=== PATIENT | male | born 1950 | race Caucasian/White ===

== ENCOUNTER 2016-05-02 14:08 | Emergency (ER) | payer OTHER ==
--- NOTE | 2016-05-02 16:06 | DIAGNOSTIC IMAGING REPORT ---
PROCEDURE: XR CHEST 1 VIEW INDICATION: CHEST PAIN TECHNIQUE: Portable AP view 03:00 p.m. COMPARISON: None. FINDINGS: Lungs are clear. Heart and mediastinum are normal. Thorax is normal. Wires and electrodes IMPRESSION: 1. Negative chest.
--- NOTE | 2016-05-02 16:27 | ED CLINICAL REPORT ---
Clinical Report - Physicians/Mid Levels [facility] [address] [place] [address] 05/02/2016 14:10 Patient: JESUS PARKS Time Seen: 14:24; initial patient contact. Arrived- By private vehicle. Historian- patient. HISTORY OF PRESENT ILLNESS Chief Complaint: CHEST PAIN. It is described as "pain" and it is described as located in the central chest area. No radiation. This started today and is still present. It was abrupt in onset and has been waxing/waning. Onset during light activity. At its maximum, severity described as moderate. When seen in the E.D., it was almost gone. Modifying factors. Not worsened by anything. Not relieved by anything. The patient has had nausea and has experienced diaphoresis. No vomiting or difficulty breathing. Similar symptoms previously: None. Recent medical care: Not recently seen/assessed. REVIEW OF SYSTEMS No fever, cough, pedal edema, calf pain or abdominal pain. He has had chills. All systems otherwise negative, except as recorded above. PAST HISTORY Hypercholesterolemia. Myocardial Infarction. Hypertension. SURGERIES: Cardiac Stent. Medications: MetFORMIN HCl Oral. Losartan Potassium Oral. Metoprolol Tartrate Oral. Aspirin Oral. Atorvastatin Calcium Oral. Allergies: No Known Drug Allergy. SOCIAL HISTORY Never smoker. No alcohol use or drug use. ADDITIONAL NOTES The nursing notes have been reviewed with agreement regarding the chief complaint, PMH and patient medications and allergies. PHYSICAL EXAM Vital Signs: 05/02/2016 14:27 BP: 139/96. HR: 60. RR: 14. O2 saturation: 98%. Temp: 98.2 F. Pain level now: 5/10. Have been reviewed. Hypertensive. Heart rate normal. Respiratory rate normal. Temperature normal. Oxygen saturation normal. Appearance: Alert. Oriented X3. No acute distress. Eyes: Eyes normal inspection. ENT: Pharynx normal. Neck: No JVD. CVS: Normal heart rate and rhythm. Heart sounds normal. Respiratory: No respiratory distress. Breath sounds normal. Chest nontender. Abdomen: Soft and nontender. Bowel sounds normal. No organomegaly. No mass. Skin: Normal skin color. Extremities: No calf tenderness. No lower extremity edema. Neuro: Oriented X 3. LABS, X-RAYS, AND EKG EKG: EKG time: (1424). No acute process. No acute ischemia. Bradycardia (ventricular rate 53). Sinus bradycardia. Normal P waves. Normal BASSAM. Normal QRS complex. Normal axis. Normal ST and T waves, QT and QTc. Prior EKG unavailable. The study has been interpreted contemporaneously by me. The study has been independently viewed by me. The EKG appears to be a good tracing. Artifact present. I agree with and confirm the computer reading of the EKG. Interpretation time: 1424. Chest X-ray: No acute disease. Normal lung markings present. Mediastinum normal. Great vessels normal. Soft tissues normal. No infiltrate. No fracture. No bony lesion present. Views: AP. Technique: good. The X-rays were independently viewed by me and interpreted contemporaneously by me. Prior films were not available for comparison. Interpretation time: 15:53. Laboratory Tests: CBC w Diff: (HUNTER: 05/02/2016 15:02) ( [facility] Final results Test Result Flag Units (Reference) WHITE BLOOD COUNT 11.5 K/uL (4.5-11.5) RED BLOOD COUNT 4.86 M/uL (4.50-5.90) HEMOGLOBIN 14.6 gm/dL (13.5-17.5) HEMATOCRIT 44.7 % (41.0-53.0) MEAN CELL VOLUME 92 fL (80-100) MEAN CORPUSCULAR HGB 30 pg (26-34) MEAN CORPUSCULAR HGB CONC 33 g/dL (31-37) RED CELL DISTRIBUTION WIDTH 14.9 H % (11.6-14.8) PLATELET COUNT 220 K/uL (150-400) NEUTROPHIL % 62.1 % (50-75) LYMPH % 26.4 % (25-40) MONO % 9.1 % (3-14) EOSINOPHIL % 2.0 % (0-4) BASOPHIL % 0.4 % (0-2) [id number]: (HUNTER: 05/02/2016 15:02) ( Mscvd 05/02/2016 15:47) Final results Test Result Flag Units (Reference) D-DIMER QUANTITATIVE 0.33 ug/mLFEU (0.27-0.52) The primary value of this quantitative assay relates toits negative predictive value (i.e. exclusion) of pulmonaryembolism/deep vein thrombosis/DIC.Elevated levels of d-dimer may also occur with:, age, cancer, inflammation, liver disease,post-op, infection, hematoma, coronary disease, peripheralarteriopathy, bleeding disorders and thrombolytic treatment.Results should be correlated with other clinical andradiological data.Testing Methodology: Latex Immunoassay Lipase: (HUNTER: 05/02/2016 15:02) ( [facility]42[facility] Final results Test Result Flag Units (Reference) LIPASE 163 U/L (73-393) AMYLASE 67 U/L (25-115) CHEM 13 PANEL: (HUNTER: 05/02/2016 15:02) ( DegRcvd 05/02/2016 15:34) Final results Test Result Flag Units (Reference) GLUCOSE 145 H mg/dL (70-110) BUN 24 H mg/dL (7-18) CREATININE 1.4 H mg/dL (0.6-1.3) Estimated GFR 53.72 mL/min Estimated GFR- >60 mL/min Note: Persistent reduction over 3 months in eGFR<60 mL/min/1.73 m2 defines CKD. Patients with eGFR values>=60 mL/min/1.73 m2 may also have CKD if evidence ofpersistent proteinuria. Additional information may be foundat [email or web address].org. SODIUM 139 mmol/L (136-145) POTASSIUM 4.6 mmol/L (3.5-5.1) CHLORIDE 103 mmol/L (98-107) CARBON DIOXIDE 27 mmol/L (21-32) CALCIUM 9.3 mg/dL (8.5-10.1) TOTAL PROTEIN 7.6 g/dL (6.4-8.2) ALBUMIN 3.8 g/dL (3.3-5.0) BILIRUBIN, TOTAL 0.4 mg/dL (0.0-1.0) ALKALINE PHOSPHATASE 75 U/L (46-116) AST (SGOT) 22 U/L (15-37) ALT (SGPT) 40 U/L (12-78) MAGNESIUM 2.1 mg/dL (1.8-2.4) CPK 128 U/L (24-260) TROPONIN I <0.05 ng/mL (0.00-1.5) TROPONIN REFERENCE RANGE:<0.1 NEGATIVE0.1-1.5 INDETERMINANT>1.5 POSITIVE . PROGRESS AND PROCEDURES Course of Care: 16:26 05/02/16. 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 Discussed case with patient's primary care provider, (call returned 16:00 Dr. Mercado). Reviewed test results. Disposition: Discharged home in good and improved condition. Condition: good. CLINICAL IMPRESSION Atypical chest pain .12 lead EKG performed. Mild chronic renal insufficiency. INSTRUCTIONS Your Current Medications: CONTINUE TAKING THE FOLLOWING MEDICATIONS: Aspirin Oral. Atorvastatin Calcium Oral. Losartan Potassium Oral. MetFORMIN HCl Oral. Metoprolol Tartrate Oral. Follow-up: Follow up with your doctor in about two days. Call for an appointment. Blood pressure screening was not performed during this visit because the patient has an active diagnosis of hypertension. (Electronically signed by Jairon Marrero Dr. 05/02/2016 22:43)
--- NOTE | 2016-05-02 16:27 | ED NURSING NOTES ---
Clinical Report - Nurses [place] [address] [place] [address] 05/02/2016 14:10 Patient: JESUS PARKS TRIAGE Triage time 1427 PM. Chief Complaint: CHEST PAIN and (pressure). Alert. No acute distress. --14:34 Frankie Soliz R.N. 14:27 05/02/16. BP: 139/96 taken on the left arm, via an automated monitor, while lying. HR: 60 (regular and bradycardic). RR: 14. O2 saturation: 98% on room air. Temp: 98.2 F (oral). Pain level now: 08/15. --14:34 Frankie Soliz R.N. Weight: 107.9 kg stated. Height/Length: 68 inches Per Patient. BMI: 36.2. --14:32 Frankie Soliz R.N. Medications Atorvastatin Calcium Oral. --14:30 Frankie Soliz R.N. Aspirin Oral. --14:30 Frankie Soliz R.N. Metoprolol Tartrate Oral. --14:30 Frankie Soliz R.N. Losartan Potassium Oral. --14:31 Frankie Soliz R.N. MetFORMIN HCl Oral. --14:31 Frankie Soliz R.N. Allergies No Known Drug Allergy. --16:42 Frankie Soliz R.N. History Arrived by private vehicle. Historian: patient. Accompanied by family. This is a new problem and onset was abrupt. (5:30AM). 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 SOCIAL HX: Never smoker. Occasional alcohol use. History of drug use. (no). FALL RISK ASSESSMENT: Fall risk assessment completed. No fall risk identified. NUTRITIONAL RISK ASSESSMENT: The nutritional risk assessment revealed no deficiencies. FUNCTIONAL ASSESSMENT: Functional assessment: no impairments noted. LEARNING NEEDS ASSESSMENT: The learning needs assessment revealed no barriers. SKIN INTEGRITY ASSESSMENT: Skin integrity risk assessment completed. No skin integrity risk identified. --14:34 Frankie Soliz R.N. PROBLEMS: Hypercholesterolemia. Myocardial Infarction. Hypertension. --14:32 Frankie Soliz R.N. ADDITIONAL SURGERIES: Cardiac Stent. --14:32 Frankie Soliz R.N. Interventions ID band on patient. --14:34 Frankie Soliz R.N. PHYSICAL ASSESSMENT Ambulatory to room. GENERAL / NEURO / PSYCH: Alert. Oriented X 4. Appears in no acute distress. HEENT: Mucous membranes are pink. RESPIRATORY: Respirations not labored. Chest nontender. Breath sounds within normal limits. CVS: Cardiac rhythm: sinus bradycardia. Heart sounds within normal limits. Pulses within normal limits. ( chest pressure and nausea). Capillary refill less than 2 seconds. GI / : Abdomen soft and nontender. EXTREMITIES: No lower extremity edema. SKIN: Skin is warm and dry. Normal skin turgor. Skin is non-tender. --14:34 Frankie Soliz R.N. NURSING PROGRESS NOTES 15:15 05/02/2016 Aspirin PO Tablets 325 mg given. Allergies verified and confirmed 5 rights. --15:15 Frankie Soliz R.N. 15:15 05/02/2016 Site #1 started via IV in the right antecubital space with an 18g angiocath; three attempts. Blood drawn: rainbow set. Labeled in the presence of the patient and sent to the lab. Saline lock flushed with 10 mL saline. --15:15 Frankie Soliz R.N. 15:59 05/02/16. BP: 130/86 taken on the left arm, via an automated monitor, while lying. HR: 54. RR: 16. O2 saturation: 96% on room air. --15:59 Frankie Soliz R.N. The patient reports no complaints and he is calm and resting quietly. --15:59 Frankie Soliz R.N. 16:43 05/02/2016 Site #1 removed upon discharge. --16:43 Frankie Soliz R.N. DISPOSITION / DISCHARGE Condition at departure: improved. The goals identified in the patient's plan of care were met. No learning barriers present. Reviewed medication(s) side effects, precautions, dosing and course information. Reviewed need for increased fluid intake. Patient verbalized understanding. Written instructions provided in Occitan. The patient was discharged home and accompanied by spouse. He left the Emergency Department ambulatory and via private vehicle. Spouse driving. FALL RISK ASSESSMENT: Fall risk assessment completed. No fall risk identified. --16:42 Frankie Soliz R.N. 16:41 05/02/16. BP: 130/90 taken on the left arm, via an automated monitor, while lying. RN notified. HR: 58. RR: 18. O2 saturation: 96% on room air. Temp: 98.2 F (oral). Pain level now: 0/10. --16:42 Frankie Soliz R.N. Departure time: 1642 PM. --16:42 Frankie Soliz R.N. Locked/Released at 05/02/2016 16:45 by Frankie Soliz R.N.
--- NOTE | 2016-05-02 16:27 | ED NURSING NOTES ---
Clinical Report - Nurses [place] [address] [place] [address] 05/02/2016 14:10 Patient: JESUS PARKS TRIAGE Triage time 1427 PM. Chief Complaint: CHEST PAIN and (pressure). Alert. No acute distress. --14:34 Frankie Soliz R.N. 14:27 05/02/16. BP: 139/96 taken on the left arm, via an automated monitor, while lying. HR: 60 (regular and bradycardic). RR: 14. O2 saturation: 98% on room air. Temp: 98.2 F (oral). Pain level now: 08/15. --14:34 Frankie Soliz R.N. Weight: 107.9 kg stated. Height/Length: 68 inches Per Patient. BMI: 36.2. --14:32 Frankie Soliz R.N. Medications Atorvastatin Calcium Oral. --14:30 Frankie Soliz R.N. Aspirin Oral. --14:30 Frankie Soliz R.N. Metoprolol Tartrate Oral. --14:30 Frankie Soliz R.N. Losartan Potassium Oral. --14:31 Frankie Soliz R.N. MetFORMIN HCl Oral. --14:31 Frankie Soliz R.N. Allergies No Known Drug Allergy. --16:42 Frankie Soliz R.N. History Arrived by private vehicle. Historian: patient. Accompanied by family. This is a new problem and onset was abrupt. (5:30AM). 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 SOCIAL HX: Never smoker. Occasional alcohol use. History of drug use. (no). FALL RISK ASSESSMENT: Fall risk assessment completed. No fall risk identified. NUTRITIONAL RISK ASSESSMENT: The nutritional risk assessment revealed no deficiencies. FUNCTIONAL ASSESSMENT: Functional assessment: no impairments noted. LEARNING NEEDS ASSESSMENT: The learning needs assessment revealed no barriers. SKIN INTEGRITY ASSESSMENT: Skin integrity risk assessment completed. No skin integrity risk identified. --14:34 Frankie Soliz R.N. PROBLEMS: Hypercholesterolemia. Myocardial Infarction. Hypertension. --14:32 Frankie Soliz R.N. ADDITIONAL SURGERIES: Cardiac Stent. --14:32 Frankie Soliz R.N. Interventions ID band on patient. --14:34 Frankie Soliz R.N. PHYSICAL ASSESSMENT Ambulatory to room. GENERAL / NEURO / PSYCH: Alert. Oriented X 4. Appears in no acute distress. HEENT: Mucous membranes are pink. RESPIRATORY: Respirations not labored. Chest nontender. Breath sounds within normal limits. CVS: Cardiac rhythm: sinus bradycardia. Heart sounds within normal limits. Pulses within normal limits. ( chest pressure and nausea). Capillary refill less than 2 seconds. GI / : Abdomen soft and nontender. EXTREMITIES: No lower extremity edema. SKIN: Skin is warm and dry. Normal skin turgor. Skin is non-tender. --14:34 Frankie Soliz R.N. NURSING PROGRESS NOTES 15:15 05/02/2016 Aspirin PO Tablets 325 mg given. Allergies verified and confirmed 5 rights. --15:15 Frankie Soliz R.N. 15:15 05/02/2016 Site #1 started via IV in the right antecubital space with an 18g angiocath; three attempts. Blood drawn: rainbow set. Labeled in the presence of the patient and sent to the lab. Saline lock flushed with 10 mL saline. --15:15 Frankie Soliz R.N. 15:59 05/02/16. BP: 130/86 taken on the left arm, via an automated monitor, while lying. HR: 54. RR: 16. O2 saturation: 96% on room air. --15:59 Frankie Soliz R.N. The patient reports no complaints and he is calm and resting quietly. --15:59 Frankie Soliz R.N. 16:43 05/02/2016 Site #1 removed upon discharge. --16:43 Frankie Soliz R.N. DISPOSITION / DISCHARGE Condition at departure: improved. The goals identified in the patient's plan of care were met. No learning barriers present. Reviewed medication(s) side effects, precautions, dosing and course information. Reviewed need for increased fluid intake. Patient verbalized understanding. Written instructions provided in Yi. The patient was discharged home and accompanied by spouse. He left the Emergency Department ambulatory and via private vehicle. Spouse driving. FALL RISK ASSESSMENT: Fall risk assessment completed. No fall risk identified. --16:42 Frankie Soliz R.N. 16:41 05/02/16. BP: 130/90 taken on the left arm, via an automated monitor, while lying. RN notified. HR: 58. RR: 18. O2 saturation: 96% on room air. Temp: 98.2 F (oral). Pain level now: 0/10. --16:42 Frankie Soliz R.N. Departure time: 1642 PM. --16:42 Frankie Soliz R.N. Locked/Released at 05/02/2016 16:45 by Frankie Soliz R.N.
--- NOTE | 2016-05-02 16:27 | ED CLINICAL REPORT ---
Clinical Report - Physicians/Mid Levels [facility] [address] [place] [address] 05/02/2016 14:10 Patient: JESUS PARKS Time Seen: 14:24; initial patient contact. Arrived- By private vehicle. Historian- patient. HISTORY OF PRESENT ILLNESS Chief Complaint: CHEST PAIN. It is described as "pain" and it is described as located in the central chest area. No radiation. This started today and is still present. It was abrupt in onset and has been waxing/waning. Onset during light activity. At its maximum, severity described as moderate. When seen in the E.D., it was almost gone. Modifying factors. Not worsened by anything. Not relieved by anything. The patient has had nausea and has experienced diaphoresis. No vomiting or difficulty breathing. Similar symptoms previously: None. Recent medical care: Not recently seen/assessed. REVIEW OF SYSTEMS No fever, cough, pedal edema, calf pain or abdominal pain. He has had chills. All systems otherwise negative, except as recorded above. PAST HISTORY Hypercholesterolemia. Myocardial Infarction. Hypertension. SURGERIES: Cardiac Stent. Medications: MetFORMIN HCl Oral. Losartan Potassium Oral. Metoprolol Tartrate Oral. Aspirin Oral. Atorvastatin Calcium Oral. Allergies: No Known Drug Allergy. SOCIAL HISTORY Never smoker. No alcohol use or drug use. ADDITIONAL NOTES The nursing notes have been reviewed with agreement regarding the chief complaint, PMH and patient medications and allergies. PHYSICAL EXAM Vital Signs: 05/02/2016 14:27 BP: 139/96. HR: 60. RR: 14. O2 saturation: 98%. Temp: 98.2 F. Pain level now: 5/10. Have been reviewed. Hypertensive. Heart rate normal. Respiratory rate normal. Temperature normal. Oxygen saturation normal. Appearance: Alert. Oriented X3. No acute distress. Eyes: Eyes normal inspection. ENT: Pharynx normal. Neck: No JVD. CVS: Normal heart rate and rhythm. Heart sounds normal. Respiratory: No respiratory distress. Breath sounds normal. Chest nontender. Abdomen: Soft and nontender. Bowel sounds normal. No organomegaly. No mass. Skin: Normal skin color. Extremities: No calf tenderness. No lower extremity edema. Neuro: Oriented X 3. LABS, X-RAYS, AND EKG EKG: EKG time: (1424). No acute process. No acute ischemia. Bradycardia (ventricular rate 53). Sinus bradycardia. Normal P waves. Normal BASSAM. Normal QRS complex. Normal axis. Normal ST and T waves, QT and QTc. Prior EKG unavailable. The study has been interpreted contemporaneously by me. The study has been independently viewed by me. The EKG appears to be a good tracing. Artifact present. I agree with and confirm the computer reading of the EKG. Interpretation time: 1424. Chest X-ray: No acute disease. Normal lung markings present. Mediastinum normal. Great vessels normal. Soft tissues normal. No infiltrate. No fracture. No bony lesion present. Views: AP. Technique: good. The X-rays were independently viewed by me and interpreted contemporaneously by me. Prior films were not available for comparison. Interpretation time: 15:53. Laboratory Tests: CBC w Diff: (HUNTER: 05/02/2016 15:02) ( [facility] Final results Test Result Flag Units (Reference) WHITE BLOOD COUNT 11.5 K/uL (4.5-11.5) RED BLOOD COUNT 4.86 M/uL (4.50-5.90) HEMOGLOBIN 14.6 gm/dL (13.5-17.5) HEMATOCRIT 44.7 % (41.0-53.0) MEAN CELL VOLUME 92 fL (80-100) MEAN CORPUSCULAR HGB 30 pg (26-34) MEAN CORPUSCULAR HGB CONC 33 g/dL (31-37) RED CELL DISTRIBUTION WIDTH 14.9 H % (11.6-14.8) PLATELET COUNT 220 K/uL (150-400) NEUTROPHIL % 62.1 % (50-75) LYMPH % 26.4 % (25-40) MONO % 9.1 % (3-14) EOSINOPHIL % 2.0 % (0-4) BASOPHIL % 0.4 % (0-2) [id number]: (HUNTER: 05/02/2016 15:02) ( Mscvd 05/02/2016 15:47) Final results Test Result Flag Units (Reference) D-DIMER QUANTITATIVE 0.33 ug/mLFEU (0.27-0.52) The primary value of this quantitative assay relates toits negative predictive value (i.e. exclusion) of pulmonaryembolism/deep vein thrombosis/DIC.Elevated levels of d-dimer may also occur with:, age, cancer, inflammation, liver disease,post-op, infection, hematoma, coronary disease, peripheralarteriopathy, bleeding disorders and thrombolytic treatment.Results should be correlated with other clinical andradiological data.Testing Methodology: Latex Immunoassay Lipase: (HUNTER: 05/02/2016 15:02) ( [facility] 15:42) Final results Test Result Flag Units (Reference) LIPASE 163 U/L (73-393) AMYLASE 67 U/L (25-115) CHEM 13 PANEL: (HUNTER: 05/02/2016 15:02) ( RigRcvd 05/02/2016 15:34) Final results Test Result Flag Units (Reference) GLUCOSE 145 H mg/dL (70-110) BUN 24 H mg/dL (7-18) CREATININE 1.4 H mg/dL (0.6-1.3) Estimated GFR 53.72 mL/min Estimated GFR- >60 mL/min Note: Persistent reduction over 3 months in eGFR<60 mL/min/1.73 m2 defines CKD. Patients with eGFR values>=60 mL/min/1.73 m2 may also have CKD if evidence ofpersistent proteinuria. Additional information may be foundat www.kidney.org. SODIUM 139 mmol/L (136-145) POTASSIUM 4.6 mmol/L (3.5-5.1) CHLORIDE 103 mmol/L (98-107) CARBON DIOXIDE 27 mmol/L (21-32) CALCIUM 9.3 mg/dL (8.5-10.1) TOTAL PROTEIN 7.6 g/dL (6.4-8.2) ALBUMIN 3.8 g/dL (3.3-5.0) BILIRUBIN, TOTAL 0.4 mg/dL (0.0-1.0) ALKALINE PHOSPHATASE 75 U/L (46-116) AST (SGOT) 22 U/L (15-37) ALT (SGPT) 40 U/L (12-78) MAGNESIUM 2.1 mg/dL (1.8-2.4) CPK 128 U/L (24-260) TROPONIN I <0.05 ng/mL (0.00-1.5) TROPONIN REFERENCE RANGE:<0.1 NEGATIVE0.1-1.5 INDETERMINANT>1.5 POSITIVE . PROGRESS AND PROCEDURES Course of Care: 16:26 05/02/16. 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 Discussed case with patient's primary care provider, (call returned 16:00 Dr. Mercado). Reviewed test results. Disposition: Discharged home in good and improved condition. Condition: good. CLINICAL IMPRESSION Atypical chest pain .12 lead EKG performed. Mild chronic renal insufficiency. INSTRUCTIONS Your Current Medications: CONTINUE TAKING THE FOLLOWING MEDICATIONS: Aspirin Oral. Atorvastatin Calcium Oral. Losartan Potassium Oral. MetFORMIN HCl Oral. Metoprolol Tartrate Oral. Follow-up: Follow up with your doctor in about two days. Call for an appointment. Blood pressure screening was not performed during this visit because the patient has an active diagnosis of hypertension. (Electronically signed by Jairon Marrero Dr. 05/02/2016 22:43)
--- NOTE | 2016-05-02 16:27 | ED ORDER SUMMARY ---
..... Patient: JESUS PARKS [facility] VisitID: [id number] [place] [address] 65y, M Registration Date/Time: 05/02/2016 ORDER SHEET Weight: 107.9 kg (stated) Allergies: No Known Drug Allergy GENERAL ORDERS: Chest 1V Urgent (14:53 05/02/2016 HOShaughnessy R.N. per protocol) (Ack 14:57 LNations ER Tech1) (16:43 HOShaughnessy R.N.) [place] Cutter (Continuous) (Chest PAIN) (14:53 05/02/2016 HOShaughnessy R.N. per protocol) (Ack 14:55 LNations ER Tech1) (15:15 HOShaughnessy R.N.) Cardiac Panel Stat (14:54 05/02/2016 HOShaughnessy R.N. per protocol) (Ack 14:56 LNations ER Tech1) (15:15 HOShaughnessy R.N.) Pulse oximeter (14:54 05/02/2016 HOShaughnessy R.N. per protocol) (Ack 14:55 LNations ER Tech1) (15:15 HOShaughnessy R.N.) EKG - ER Stat (14:54 05/02/2016 HOShaughnessy R.N. per protocol) (14:55 LNations ER Tech1) Vitals (14:54 05/02/2016 HOShaughnessy R.N. per protocol) (Ack 14:56 LNations ER Tech1) (15:15 HOShaughnessy R.N.) NPO (14:54 05/02/2016 HOShaughnessy R.N. per protocol) (Ack 14:55 LNations ER Tech1) (15:15 HOShaughnessy R.N.) D-Dimer Urgent (15:16 05/02/2016 Kailash Hess) (Ack 15:25 LNations ER Tech1) (16:43 HOShaughnessy R.N.) BNP Urgent (15:16 05/02/2016 Kailash Hess) (Ack 15:25 LNations ER Tech1) (16:43 HOShaughros R.N.) Amylase Urgent (15:16 05/02/2016 Kailash Hess) (Ack 15:25 LNations ER Tech1) (16:43 HOShaughnessy R.N.) Lipase Urgent (15:16 05/02/2016 Kailash Hess) (Ack 15:25 LNations ER Tech1) (16:43 HOShaughnessy R.N.) MEDICATION ORDERS: Aspirin PO 325 mg (NOW) (14:53 05/02/2016 HOShasrini R.N. per protocol) (15:15 HOShaughjiey R.N.) IV FLUIDS: IV Saline Lock (14:54 05/02/2016 Jose Martin R.N. per protocol) (15:15 HOShaughnessy R.N.) ORDER SHEET NOTES: [Electronically signed by Frankie Soliz R.N. (16:45 05/02/2016)] [Electronically signed by Jairon Marrero Dr. (22:43 05/02/2016)] [Electronically locked/signed by Frankie Soliz R.N. (16:45 05/02/2016)]
--- NOTE | 2016-05-02 16:27 | ED ORDER SUMMARY ---
..... Patient: JESUS PARKS OrderSheet [facility] VisitID: [id number] [place] [address] 65y, M Registration Date/Time: 05/02/2016 ORDER SHEET Weight: 107.9 kg (stated) Allergies: No Known Drug Allergy GENERAL ORDERS: Chest 1V Urgent (14:53 05/02/2016 HOShaughnessy R.N. per protocol) (Ack 14:57 LNations ER Tech1) (16:43 HOShaughnessy R.N.) Claims Examiner (Continuous) (Chest PAIN) (14:53 05/02/2016 HOShaughnessy R.N. per protocol) (Ack 14:55 LNations ER Tech1) (15:15 HOShaughnessy R.N.) Cardiac Panel Stat (14:54 05/02/2016 HOShaughnessy R.N. per protocol) (Ack 14:56 LNations ER Tech1) (15:15 HOShaughnessy R.N.) Pulse oximeter (14:54 05/02/2016 HOShaughnessy R.N. per protocol) (Ack 14:55 LNations ER Tech1) (15:15 HOShaughnessy R.N.) EKG - ER Stat (14:54 05/02/2016 HOShaughnessy R.N. per protocol) (14:55 LNations ER Tech1) Vitals (14:54 05/02/2016 HOShaughnessy R.N. per protocol) (Ack 14:56 LNations ER Tech1) (15:15 HOShaughnessy R.N.) NPO (14:54 05/02/2016 HOShaughnessy R.N. per protocol) (Ack 14:55 LNations ER Tech1) (15:15 HOShaughnessy R.N.) D-Dimer Urgent (15:16 05/02/2016 Kailash Hess) (Ack 15:25 LNations ER Tech1) (16:43 HOShaughnessy R.N.) BNP Urgent (15:16 05/02/2016 Kailash Hess) (Ack 15:25 LNations ER Tech1) (16:43 HOShaughros R.N.) Amylase Urgent (15:16 05/02/2016 Kailash Hess) (Ack 15:25 LNations ER Tech1) (16:43 HOShaughnessy R.N.) Lipase Urgent (15:16 05/02/2016 Kailash Hess) (Ack 15:25 LNations ER Tech1) (16:43 HOShaughnessy R.N.) MEDICATION ORDERS: Aspirin PO 325 mg (NOW) (14:53 05/02/2016 HOShasrini R.N. per protocol) (15:15 HOShaughjiey R.N.) IV FLUIDS: IV Saline Lock (14:54 05/02/2016 Jose Martin R.N. per protocol) (15:15 HOShaughnessy R.N.) ORDER SHEET NOTES: [Electronically signed by Frankie Soliz R.N. (16:45 05/02/2016)] [Electronically signed by Jairon Marrero Dr. (22:43 05/02/2016)] [Electronically locked/signed by Frankie Soliz R.N. (16:45 05/02/2016)]
--- NOTE | 2016-05-02 22:43 | ED DISCHARGE INSTRUCTIONS ---
Patient: JESUS PARKS General Instructions [facility] VisitID: [id number] [place] [address] 65y, M Registration Date/Time: 05/02/2016 Atypical chest pain .12 lead EKG performed. Mild chronic renal insufficiency. INSTRUCTIONS Your Current Medications: CONTINUE TAKING THE FOLLOWING MEDICATIONS: Aspirin Oral. Atorvastatin Calcium Oral. Losartan Potassium Oral. MetFORMIN HCl Oral. Metoprolol Tartrate Oral. Follow-up: Follow up with your doctor in about two days. Call for an appointment. Blood pressure screening was not performed during this visit because the patient has an active diagnosis of hypertension. ADDITIONAL INFORMATION Chest Pain, Noncardiac Based on your visit today, the exact cause of your chest pain is not certain. Your condition does not seem serious and your pain does not appear to be coming from your heart. However, sometimes the signs of a serious problem take more time to appear. Therefore, please watch for the warning signs listed below. Home Care: Rest today and avoid strenuous activity. Take any prescribed medicine as directed. Follow Up with your doctor or this facility as instructed or if you do not start to feel better within 24 hours. Get Prompt Medical Attention if any of the following occur: A change in the type of pain: if it feels different, becomes more severe, lasts longer, or begins to spread into your shoulder, arm, neck, jaw or back Shortness of breath or increased pain with breathing Cough with dark colored sputum (phlegm) or blood Weakness, dizziness, or fainting Fever of 100.4F (38C) or higher, or as directed by your healthcare provider Swelling, pain or redness in one leg Renal Insufficiency The role of the kidneys is to remove waste products and excess water from the body. When the kidneys do not function normally, waste products build up in the blood.The early stage of this process is called renal insufficiency . If renal insufficiency worsens it can lead to chronic renal failure. This allows excess water, waste and toxic substances to build up in the body. This can become a threat to life, requiring dialysis or a kidney transplant to stay alive. Diabetes is the leading causes of renal insufficiency. Other causes include high blood pressure, hardening of the arteries, lupus, inflammation of the blood vessels (vasculitis), prior viral and bacterial infections, and others. Certain vzfa-hpv-wcyddet pain medicines can cause renal failure when taken often over a long period of time. These include aspirin, ibuprofen (Advil, Motrin) and related anti-inflammatory medicines. Home Care: If you have diabetes, talk to your doctor about the quality of your blood sugar control.Ask about any changes needed to your diet or medicines. If you have high blood pressure: Take your blood pressure medicine. Take up a regular exercise program that you enjoy.Check with your doctor to be sure your planned exercise program is right for you. Reduce your salt (sodium) intake.Your doctor can tell you how much salt per day is safe for you. If you are overweight, talk to your doctor about a weight loss plan. If you smoke, you must quit.Smoking worsens kidney disease.Talk to your doctor about ways to help you quit.For more information, visit the following links: www.smokefree.gov/pubs/clearing_the_air.pdf www.smokefree.gov www.[employer].com Talk to your doctor about any dietary restrictions advised. In general, it is advisable to limit protein, salt, potassium and phosphorus.Avoid excess fluids. Do not add salt at the table and avoid salty foods.A calcium supplement may be prescribed to protect your bones from osteoporosis. Avoid the following over the counter medicines, or consult your doctor before using: Aspirin and anti-inflammatory drugs such as ibuprofen (Advil, Motrin), naprosyn (Aleve); [Short term use of acetaminophen (Tylenol) for fever or pain is okay.] Laxatives and antacids containing magnesium or aluminum (Mylanta, Maalox) Avoid Fleet or phosphosoda enemas which contain phosphorus Certain stomach acid-blocking medicine such as cimetidine (Tagamet), ranitidine (Zantac) Decongestants containing pseudoephedrine (such as some forms of Sudafed or Actifed) Herbal supplements Follow Up with your doctor or as advised by our staff. Contact one of the following for more information. [phone] www.aakp.org National Kidney Foundation www.kidney.org Return Promptly or contact your doctor if any of the following occurs: Nausea or vomiting Severe weakness, dizziness, fainting, drowsiness or confusion Chest pain or shortness of breath Unexpected weight gain or swelling in the legs, ankles or around the eyes Heart beating fast, slow or irregularly Decrease or loss in urine output You have been given the following additional information: Chest Pain, Noncardiac Renal Insufficiency (Electronically signed by Jairon Marrero Dr. 05/02/2016 22:43)
--- NOTE | 2016-05-02 22:43 | ED MED RECONCILIATION SUMMARY ---
Patient: JESUS PARKS Medication Reconciliation Report [facility] VisitID: [id number] [address] [place] [address] 65y, M Registration Date/Time: 05/02/2016 Weight: 107.9 kg Height/Length: 68 in. BMI: 36.2 ALLERGIES: No Known Drug Allergy The patient's Home Medications are listed below: CONTINUE TAKING THE FOLLOWING MEDICATIONS: Aspirin Oral Atorvastatin Calcium Oral Losartan Potassium Oral MetFORMIN HCl Oral Metoprolol Tartrate Oral The source(s) of the original Home Medication information: Not obtained. The following Medications were given to the patient in the Emergency Department: Aspirin [PO] PO 325 mg, administered: 05/02/2016 3:15:00 PM The following Medications were prescribed to the patient: None.
--- NOTE | 2016-05-02 22:43 | ED MED RECONCILIATION SUMMARY ---
Patient: JESUS PARKS Medication Reconciliation Report [facility] VisitID: [id number] [address] [place] [address] 65y, M Registration Date/Time: 05/02/2016 Weight: 107.9 kg Height/Length: 68 in. BMI: 36.2 ALLERGIES: No Known Drug Allergy The patient's Home Medications are listed below: CONTINUE TAKING THE FOLLOWING MEDICATIONS: Aspirin Oral Atorvastatin Calcium Oral Losartan Potassium Oral MetFORMIN HCl Oral Metoprolol Tartrate Oral The source(s) of the original Home Medication information: Not obtained. The following Medications were given to the patient in the Emergency Department: Aspirin [PO] PO 325 mg, administered: 05/02/2016 3:15:00 PM The following Medications were prescribed to the patient: None.
--- NOTE | 2016-05-02 22:43 | ED MAR SUMMARY ---
..... Medication Administration Record [facility] [address] [place] [address] Patient: JESUS PARKS Visit ID: [id number] 65y, M Weight: 107.9 kg Height/Length: 68 in BMI: 36.2 ALLERGIES: No Known Drug Allergy Given 15:15 05/02/2016 Frankie Soliz, RChiquitaNChiquita Medication Administered: ASPIRIN [PO], Dose: 325 mg Tablets PO. Medication Ordered: Aspirin PO 325 mg (NOW).
--- NOTE | 2016-05-02 22:43 | ED DISCHARGE INSTRUCTIONS ---
Patient: JESUS PARKS General Instructions [facility] VisitID: [id number] [place] [address] 65y, M Registration Date/Time: 05/02/2016 Atypical chest pain .12 lead EKG performed. Mild chronic renal insufficiency. INSTRUCTIONS Your Current Medications: CONTINUE TAKING THE FOLLOWING MEDICATIONS: Aspirin Oral. Atorvastatin Calcium Oral. Losartan Potassium Oral. MetFORMIN HCl Oral. Metoprolol Tartrate Oral. Follow-up: Follow up with your doctor in about two days. Call for an appointment. Blood pressure screening was not performed during this visit because the patient has an active diagnosis of hypertension. ADDITIONAL INFORMATION Chest Pain, Noncardiac Based on your visit today, the exact cause of your chest pain is not certain. Your condition does not seem serious and your pain does not appear to be coming from your heart. However, sometimes the signs of a serious problem take more time to appear. Therefore, please watch for the warning signs listed below. Home Care: Rest today and avoid strenuous activity. Take any prescribed medicine as directed. Follow Up with your doctor or this facility as instructed or if you do not start to feel better within 24 hours. Get Prompt Medical Attention if any of the following occur: A change in the type of pain: if it feels different, becomes more severe, lasts longer, or begins to spread into your shoulder, arm, neck, jaw or back Shortness of breath or increased pain with breathing Cough with dark colored sputum (phlegm) or blood Weakness, dizziness, or fainting Fever of 100.4F (38C) or higher, or as directed by your healthcare provider Swelling, pain or redness in one leg Renal Insufficiency The role of the kidneys is to remove waste products and excess water from the body. When the kidneys do not function normally, waste products build up in the blood.The early stage of this process is called renal insufficiency . If renal insufficiency worsens it can lead to chronic renal failure. This allows excess water, waste and toxic substances to build up in the body. This can become a threat to life, requiring dialysis or a kidney transplant to stay alive. Diabetes is the leading causes of renal insufficiency. Other causes include high blood pressure, hardening of the arteries, lupus, inflammation of the blood vessels (vasculitis), prior viral and bacterial infections, and others. Certain gnwn-cfo-lhvuxaw pain medicines can cause renal failure when taken often over a long period of time. These include aspirin, ibuprofen (Advil, Motrin) and related anti-inflammatory medicines. Home Care: If you have diabetes, talk to your doctor about the quality of your blood sugar control.Ask about any changes needed to your diet or medicines. If you have high blood pressure: Take your blood pressure medicine. Take up a regular exercise program that you enjoy.Check with your doctor to be sure your planned exercise program is right for you. Reduce your salt (sodium) intake.Your doctor can tell you how much salt per day is safe for you. If you are overweight, talk to your doctor about a weight loss plan. If you smoke, you must quit.Smoking worsens kidney disease.Talk to your doctor about ways to help you quit.For more information, visit the following links: www.smokefree.gov/pubs/clearing_the_air.pdf www.smokefree.gov www.[employer].com Talk to your doctor about any dietary restrictions advised. In general, it is advisable to limit protein, salt, potassium and phosphorus.Avoid excess fluids. Do not add salt at the table and avoid salty foods.A calcium supplement may be prescribed to protect your bones from osteoporosis. Avoid the following over the counter medicines, or consult your doctor before using: Aspirin and anti-inflammatory drugs such as ibuprofen (Advil, Motrin), naprosyn (Aleve); [Short term use of acetaminophen (Tylenol) for fever or pain is okay.] Laxatives and antacids containing magnesium or aluminum (Mylanta, Maalox) Avoid Fleet or phosphosoda enemas which contain phosphorus Certain stomach acid-blocking medicine such as cimetidine (Tagamet), ranitidine (Zantac) Decongestants containing pseudoephedrine (such as some forms of Sudafed or Actifed) Herbal supplements Follow Up with your doctor or as advised by our staff. Contact one of the following for more information. [employer] [phone] www.aakp.org National Kidney Foundation www.kidney.org Return Promptly or contact your doctor if any of the following occurs: Nausea or vomiting Severe weakness, dizziness, fainting, drowsiness or confusion Chest pain or shortness of breath Unexpected weight gain or swelling in the legs, ankles or around the eyes Heart beating fast, slow or irregularly Decrease or loss in urine output You have been given the following additional information: Chest Pain, Noncardiac Renal Insufficiency (Electronically signed by Jairon Marrero Dr. 05/02/2016 22:43)
--- NOTE | 2016-05-02 22:43 | ED MAR SUMMARY ---
..... Medication Administration Record [facility] [address] [place] [address] Patient: JESUS PARKS Visit ID: [id number] 65y, M Weight: 107.9 kg Height/Length: 68 in BMI: 36.2 ALLERGIES: No Known Drug Allergy Given 15:15 05/02/2016 Frankie Soliz, RChiquitaNChiquita Medication Administered: ASPIRIN [PO], Dose: 325 mg Tablets PO. Medication Ordered: Aspirin PO 325 mg (NOW).
== END 2016-05-02 16:44 | disposition home or self-care (01) ==
LOC: ED SRH 14:08
DX: R07.89 Other chest pain (principal); I12.9 Hypertensive chronic kidney disease with stage 1 through stage 4 chronic kidney disease, or unspecified chronic kidney disease; N18.9 Chronic kidney disease, unspecified; Z79.84 Long term (current) use of oral hypoglycemic drugs; Z79.82 Long term (current) use of aspirin; Z79.899 Other long term (current) drug therapy
CPT/HCPCS: 90100; 90616; 91320; 91556; 92235; 92530; 92610; 92720; 95059